=== PATIENT | male | born 1985 | race American Indian/Alaskan Native ===

== ENCOUNTER 2017-01-06 12:23 | Emergency (ER) | payer OTHER ==
[2017-01-06] MEDS ORDERED: Naproxen 550 mg Tab PO STA (13:07)
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
[2017-01-06] MEDS ORDERED: Naproxen 550 mg Tab PO ONE (13:17)
[2017-01-06 14:23] VITALS: BP 110/74; PULSE 70; RESP 16; TEMP 97.7
[2017-01-07 23:51] VITALS: O2SAT 97
== END 2017-01-06 14:25 | disposition home or self-care (01) ==
LOC: C.ER 12:23
DX: M54.5 Low back pain (principal); V49.40XA Driver injured in collision with unspecified motor vehicles in traffic accident, initial encounter